=== PATIENT | male | born 1955 | race Caucasian/White ===

== ENCOUNTER 2023-11-28 05:00 | Inpatient (IN) | payer OTHER ==
[~2023-11-28] VITALS: Ht 182.9 cm; Wt 114.5 kg
[2023-11-28] MEDS ORDERED: CELECOXIB 100 MG CAPSULE ONE (05:09)
[2023-11-28] MEDS ORDERED: GABAPENTIN 300 MG CAPSULE ONE (05:10)
[2023-11-28] MEDS ORDERED: ACETAMINOPHEN 500 MG TABLET ONE (05:10)
[2023-11-28] MEDS ORDERED: oxyCODONE HCL 10 MG TAB.ER.12H PO ONE (05:10)
[2023-11-28] MEDS ORDERED: SCOPOLAMINE HYDROBROMIDE 1 MG PATCH .72 H (TRANSDERM-SCOP) TD ONE (05:10)
[2023-11-28] MEDS: ACETAMINOPHEN 500 MG TABLET PO ONE (05:31)
[2023-11-28] MEDS: CELECOXIB 100 MG CAPSULE PO ONE (05:31)
[2023-11-28] MEDS: GABAPENTIN 300 MG CAPSULE PO ONE (05:31)
[2023-11-28] MEDS: SCOPOLAMINE HYDROBROMIDE 1 MG PATCH .72 H (TRANSDERM-SCOP) TD ONE (05:31)
[2023-11-28] MEDS ORDERED: CEFAZOLIN SOD 2 GM in D5W 50 ML IV ONE (06:00)
[2023-11-28] MEDS: oxyCODONE HCL 10 MG TAB.ER.12H PO ONE (07:10)
[2023-11-28] MEDS ORDERED: BUPIVACAINE /DEX PF 0.75% SPINAL 2 ML AMP INJ ONE (07:15)
[2023-11-28] MEDS ORDERED: NS IRRIG SOLN 1000 ML IR ONE (07:15)
[2023-11-28] MEDS ORDERED: LR 1,000 ML IV.SOLN IV ONE (07:15)
[2023-11-28] MEDS ORDERED: fentaNYL CITRATE/PF 100 MCG/2 ML AMP ONE (07:15)
[2023-11-28] MEDS ORDERED: VANCOMYCIN HCL 1000 MG/VIAL IV ONE (07:15)
[2023-11-28] MEDS ORDERED: TRANEXAMIC ACID 1,000 MG/10 ML VIAL ONE (07:15)
[2023-11-28] MEDS ORDERED: WATER FOR IRRIGATION,STERILE 1,000 ML IRRIG.SOLN IR ONE (07:15)
[2023-11-28] MEDS ORDERED: ePHEDrine sulfate 50 MG/ML VIAL ONE (07:15)
[2023-11-28] MEDS ORDERED: BUPIVACAINE /PF 0.25% 30 ML VIAL INJ ONE (07:15)
[2023-11-28] MEDS ORDERED: MIDAZOLAM HCL 2 MG/2 ML VIAL (VERSED) ONE (07:15)
[2023-11-28] MEDS ORDERED: ONDANSETRON HCL 4 MG/2 ML VIAL ONE (07:15)
[2023-11-28] MEDS ORDERED: DEXAMETHASONE SOD PHOSPHATE 4 MG/ML VIAL ONE (07:15)
[2023-11-28] MEDS ORDERED: METOCLOPRAMIDE HCL 10 MG/2 ML VIAL IVP PRN ×2 (07:30→08:15)
[2023-11-28] MEDS ORDERED: LACTULOSE 20 GM/30 ML UDC PO PRN (07:30)
[2023-11-28] MEDS ORDERED: NALOXONE HCL 0.4 MG/ML AMP (NARCAN) IVP PRN ×2 (07:30)
[2023-11-28] MEDS ORDERED: BISACODYL 10 MG/SUPPOSITORY RC PRN (07:30)
[2023-11-28] MEDS ORDERED: NALOXONE HCL 2 MG/2 ML SYR IVP PRN (07:30)
[2023-11-28] MEDS ORDERED: DIPHENHYDRAMINE HCL 25 MG CAPSULE PO PRN (07:30)
[2023-11-28] MEDS ORDERED: MEPERIDINE HCL/PF 25 MG/ML DISP.SYRIN IVP PRN (08:15)
[2023-11-28] MEDS ORDERED: LR 1,000 ML IV SCH (08:15)
[2023-11-28] MEDS ORDERED: HYDROmorphone 1 MG/ML INJ. CARTRIDGE IVP PRN ×5 (08:15→11:00)
[2023-11-28] MEDS: TAMSULOSIN HCL 0.4 MG CAP PO ONE ×2 (10:34→12:20)
[2023-11-28] MEDS ORDERED: oxyCODONE HCL 5 MG TABLET PO PRN ×2 (11:00)
[2023-11-28] MEDS ORDERED: traMADol HCL HCL 50 MG TABLET (ULTRAM) PO PRN (11:00)
[2023-11-28] MEDS ORDERED: LORATADINE 10 MG TABLET PO PRN (11:00)
[2023-11-28] MEDS ORDERED: ONDANSETRON HCL 4 MG/2 ML VIAL IVP PRN (11:45)
[2023-11-28 12:23] VITALS: BP_SYST 153; PULSE 72; RESP 20; TEMP 97.9; O2SAT 97
[2023-11-28] MEDS ORDERED: ACETAMINOPHEN 500 MG TABLET PO SCH (14:00)
[2023-11-28] MEDS ORDERED: KETOROLAC TROMETHAMINE 10 MG TABLET (TORADOL) PO SCH (14:00)
[2023-11-28] MEDS ORDERED: SENNOSIDES/DOCUSATE SODIUM 1 TAB TABLET(SENOKOT-S) PO SCH (21:00)
[2023-11-29] MEDS ORDERED: ASPIRIN 81 MG TAB.CHEW PO SCH (09:00)
[2023-11-29] MEDS ORDERED: TAMSULOSIN HCL 0.4 MG CAP PO SCH (09:00)
[2023-11-29] MEDS ORDERED: CELECOXIB 200 MG CAPSULE PO SCH (11:00)
== END 2023-11-29 13:40 | disposition home or self-care (01) | DRG 470 ==
LOC: SMU 05:00 → EDBD 07:30
PROVIDERS: ADMIT Student in an Organized Health Care Education/Training Program; ATTEND Student in an Organized Health Care Education/Training Program
PROC: 0SRD0J9 Replacement of Left Knee Joint with Synthetic Substitute, Cemented, Open Approach (ICD-10-PCS; principal; 2023-11-28 07:22)
DX: M17.12 Unilateral primary osteoarthritis, left knee (principal)
CPT/HCPCS: 73560; 87081; 88307; 88311; 97110-GP; 97116-GP; 97530-GP; J0690; J0696; J1100; J2405; J3010; J3370; J3465; J3490; J7060; J7120

== ENCOUNTER 2023-12-18 17:58 | Emergency (ER) | payer OTHER ==
[~2023-12-18] VITALS: Ht 182.9 cm; Wt 117.9 kg
[2023-12-18 18:37] VITALS: BP_SYST 146; PULSE 93; RESP 15; TEMP 97.8; O2SAT 97
[2023-12-18 21:42] LABS: BASOPHILS % (AUTO) 0.3 % (0.0-2.0); EOSINOPHILS % (AUTO) 0.4 % (0.0-4.0); HEMATOCRIT 37.6 % (36-54); HEMOGLOBIN 13.2 g/dL (14.0-18.0); LYMPHOCYTES # (AUTO) 1.5 K/uL (1.0-5.5); LYMPHOCYTES % (AUTO) 17.8 % (20.5-51.5); MEAN CORPUSCULAR HEMOGLOBIN 33 pg (27-31); MEAN CORPUSCULAR HGB CONC 35 % (32-36); MEAN CORPUSCULAR VOLUME 95 fL (79.0-98.0); MONOCYTES # (AUTO) 0.7 K/uL (0.0-1.0); MONOCYTES % (AUTO) 7.7 % (1.7-9.3); NEUTROPHILS # (AUTO) 6.3 K/uL (1.8-7.7); NEUTROPHILS % (AUTO) 73.8 % (40.0-70.0); PLATELET COUNT (AUTO) 251 K/uL (130-430); RED BLOOD CELL COUNT(AUTO) 3.95 MIL/uL (4.2-6.2); RED CELL DISTRIBUTION WIDTH 13.8 % (9.0-15.0); WHITE BLOOD COUNT (AUTO) 8.6 K/uL (4.8-10.8)
[2023-12-18 21:44] LABS: CALCIUM 9.6 mg/dL (8.4-11.0); CREATININE 1.76 mg/dL (0.55-1.30); POTASSIUM 4.5 mmol/L (3.5-5.1)
[2023-12-18 21:51] LABS: PROTHROMBIN TIME 10.7 SECS (9.5-12.5)
[2023-12-18] MEDS ORDERED: TAMS-11 PO (21:51)
[2023-12-18] MEDS ORDERED: HYDR-3917 PO (21:51)
[2023-12-18 22:09] LABS: ALBUMIN 3.7 g/dL (3.4-4.8); BILIRUBIN,DIRECT 0.2 mg/dL (0.0-0.3); TOTAL BILIRUBIN 0.6 mg/dL (0.0-1.0); TOTAL PROTEIN, SERUM 6.9 g/dL (6.4-8.3)
[2023-12-18 22:22] VITALS: BP_SYST 149; PULSE 90; RESP 16; TEMP 98; O2SAT 98
== END 2023-12-18 22:22 | disposition home or self-care (01) ==
LOC: SED 17:58
DX: N20.0 Calculus of kidney (principal); R10.9 Unspecified abdominal pain; Z79.899 Other long term (current) drug therapy
CPT/HCPCS: 36415; 80048; 80076; 82150; 83605; 83690; 85025; 85610; 85730; 99284